=== PATIENT | male | born 1995 | race African-American/Black ===

== ENCOUNTER 2018-01-19 21:52 | Emergency (ER) | payer SELFPAY ==
[2018-01-19] MEDS: morphine 4 MG/ML VIAL IV (23:56)
== END 2018-01-20 01:15 | disposition home or self-care (01) ==
LOC: FTE 01-20 01:15
DX: N47.2 Paraphimosis (principal); F17.210 Nicotine dependence, cigarettes, uncomplicated
CPT/HCPCS: 36415; 96374; 99284-25